=== PATIENT | male | born 1985 | race Caucasian/White ===

== ENCOUNTER 2018-04-05 07:04 | Emergency (ER) | payer OTHER ==
[~2018-04-05] VITALS: Ht 182.9 cm; Wt 73.0 kg
[2018-04-05 07:08] VITALS: BP 124/82
[2018-04-05] MEDS ORDERED: LIDOCAINE-MPF 2%, 2ML ONE (07:18)
[2018-04-05] MEDS ORDERED: DIPH,PERTUSS(ACELL),TET VAC/PF 0.5 ML IM-VACC ONE ×2 (07:18→07:30)
[2018-04-05] MEDS ORDERED: LIDOCAINE-MPF 2%, 2ML INFIL ONE (07:30)
[2018-04-05] MEDS ORDERED: BACITRACIN ZINC OINT 500U/GM, 0.9 GM ONE (08:59)
== END 2018-04-05 09:08 | disposition home or self-care (01) ==
LOC: ED 07:54
DX: S01.21XA Laceration without foreign body of nose, initial encounter (principal); S01.511A Laceration without foreign body of lip, initial encounter; W22.8XXA Striking against or struck by other objects, initial encounter; Y93.84 Activity, sleeping; Y92.009 Unspecified place in unspecified non-institutional (private) residence as the place of occurrence of the external cause; Y99.8 Other external cause status
CPT/HCPCS: 13152; 40650; 90471; 90715